=== PATIENT | male | born 1995 | race Caucasian/White ===

== ENCOUNTER 2021-02-04 11:22 | Emergency (ER) | payer OTHER ==
[~2021-02-04] VITALS: Ht 190.5 cm; Wt 90.7 kg
--- NOTE | 2021-02-04 11:42 | NUR ---
URINE COLLECTED AND SENT TO LAB
--- NOTE | 2021-02-04 11:43 | NUR ---
TO ER BED 3, C/O DYSURIA X 2 WEEKS WITH LEFT FLANK PAIN, MD JEANA AT BEDSIDE FOR EVAL
--- NOTE | 2021-02-04 11:49 | NUR ---
US AT BEDSIDE
--- NOTE | 2021-02-04 11:55 | NUR ---
SALINE LOCK ESTABLISHED, BLOOD DRAWN AND PICKED UP BY LAB
[2021-02-04] MEDS ORDERED: KETOROLAC TROMETHAMINE INJ 30 MG/ML VIAL IM ONE (12:00)
[2021-02-04] MEDS ORDERED: IV NS 0.9% 1,000 ML IV ONE (12:00)
[2021-02-04] MEDS ORDERED: KETOROLAC TROMETHAMINE INJ 30 MG/ML VIAL ONE (12:00)
[2021-02-04 12:17] LABS: BASOPHILS % (AUTO) 0.3 % (0.0-2.0); EOSINOPHILS % (AUTO) 0.1 % (0.0-6.0); HEMATOCRIT 44 % (39-51); HEMOGLOBIN 14.8 g/dL (13.5-17.5); LYMPHOCYTES # (AUTO) 0.7 K/uL (0.8-4.8); LYMPHOCYTES % (AUTO) 10.2 % (20.0-44.0); MEAN CORPUSCULAR HGB CONC 33 g/dl (31.0-36.0); MEAN CORPUSCULAR VOLUME 92 fL (80-96); MONOCYTES # (AUTO) 0.5 K/uL (0.1-1.30); MONOCYTES % (AUTO) 6.3 % (2.0-12.0); NEUTROPHILS % (AUTO) 83.1 % (43.0-81.0); PLATELET COUNT (AUTO) 281 K/uL (150-450); RED BLOOD CELL COUNT(AUTO) 4.85 MIL/uL (4.5-6.0); WHITE BLOOD COUNT (AUTO) 7.2 K/uL (4.3-11.0)
[2021-02-04] MEDS ORDERED: IBUP-1957 PO (12:20)
[2021-02-04] MEDS ORDERED: TAMS-12 PO (12:20)
[2021-02-04 12:26] LABS: BILIRUBIN,URINE NEGATIVE (NEGATIVE); COLOR,URINE YELLOW (YELLOW); LEUKOCYTE ESTERASE ,URINE NEGATIVE (NEGATIVE); NITRITE, URINE NEGATIVE (NEGATIVE); PROTEIN,URINE NEGATIVE (NEGATIVE); UGLUCOSE NEGATIVE (NEGATIVE); UROBILINOGEN,URINE 0.2 EU/dL (0.2)
[2021-02-04] MEDS ORDERED: KETOROLAC TROMETHAMINE INJ 30 MG/ML VIAL IV ONE (12:30)
[2021-02-04 12:42] LABS: CALCIUM, SERUM 9.4 mg/dL (8.5-10.1); CREATININE 1.1 mg/dL (0.6-1.3); POTASSIUM 4.3 mmol/L (3.5-5.1)
[2021-02-04 13:15] VITALS: BP 118/69
--- NOTE | 2021-02-04 13:16 | NUR ---
IV removed. Catheter intact and site benign. Pressure and 4x4 applied to site. No bleeding noted.Patient discharged to home in stable condition. Written and verbal after care instructions given. Patient verbalizes understanding of instruction.
== END 2021-02-04 13:16 | disposition home or self-care (01) ==
LOC: ER 11:22
DX: N20.0 Calculus of kidney (principal); Z88.0 Allergy status to penicillin
CPT/HCPCS: 36415; 76770; 80048; 81003; 85025; 96361; 96374; 99284; J1885; J7030

== ENCOUNTER 2021-02-11 04:35 | Emergency (ER) | payer OTHER ==
[~2021-02-11] VITALS: Ht 190.5 cm; Wt 90.7 kg
[~2021-02-11 04:35] MED LIST: IBUP-1957 PO; TAMS-12 PO
[2021-02-11] MEDS ORDERED: ONDANSETRON HCL/PF 4 MG/2 ML VIAL ONE (04:54)
[2021-02-11] MEDS ORDERED: KETOROLAC TROMETHAMINE INJ 30 MG/ML VIAL ONE (04:54)
--- NOTE | 2021-02-11 04:55 | NUR ---
PT BIBS C/O 10/10 FLANK PAIN AND NAUSEA. PT STATES HE HAD BLACK URINE DURING THE MORNING AND LIGHT PINK URINE PRIOR TO COMING TO ER. PT IS A/0X4. PT ON ROOM AIR SHOWING NO S/S OF RESP DISTRESS/SOB. BREATHING EVEN AND UNLABORED. WILL CONTINUE TO MONITOR AND ASSESS FOR ANY CHANGES.
[2021-02-11] MEDS: IV NS 0.9% 1,000 ML BAG IV ONE (05:08)
[2021-02-11] MEDS: KETOROLAC TROMETHAMINE INJ 30 MG/ML VIAL IV ONE (05:10)
[2021-02-11] MEDS: ONDANSETRON HCL/PF 4 MG/2 ML VIAL IVP ONE (05:10)
[2021-02-11 05:14] LABS: BASOPHILS % (AUTO) 0.8 % (0.0-2.0); EOSINOPHILS % (AUTO) 2.1 % (0.0-6.0); HEMATOCRIT 43 % (39-51); HEMOGLOBIN 14.4 g/dL (13.5-17.5); LYMPHOCYTES % (AUTO) 42.1 % (20.0-44.0); MEAN CORPUSCULAR HGB CONC 34 g/dl (31.0-36.0); MEAN CORPUSCULAR VOLUME 92 fL (80-96); MONOCYTES # (AUTO) 0.5 K/uL (0.1-1.30); MONOCYTES % (AUTO) 10.7 % (2.0-12.0); NEUTROPHILS # (AUTO) 2.1 K/uL (1.8-8.9); NEUTROPHILS % (AUTO) 44.3 % (43.0-81.0); PLATELET COUNT (AUTO) 239 K/uL (150-450); RED BLOOD CELL COUNT(AUTO) 4.64 MIL/uL (4.5-6.0); WHITE BLOOD COUNT (AUTO) 4.8 K/uL (4.3-11.0)
[2021-02-11 05:16] LABS: CALCIUM, SERUM 9.4 mg/dL (8.5-10.1); CREATININE 1.1 mg/dL (0.6-1.3); POTASSIUM 4.6 mmol/L (3.5-5.1)
[2021-02-11 05:22] LABS: ALBUMIN 4.3 g/dL (3.4-5.0); BILIRUBIN,DIRECT 0.1 mg/dL (0.0-0.2); BILIRUBIN,TOTAL 0.3 mg/dL (0.2-1.0); TOTAL PROTEIN, SERUM 7.5 g/dL (6.4-8.2)
--- NOTE | 2021-02-11 05:35 | NUR ---
urine sent to lab
[2021-02-11 05:56] LABS: BILIRUBIN,URINE SMALL (NEGATIVE); COLOR,URINE OTHER (YELLOW); LEUKOCYTE ESTERASE ,URINE NEGATIVE (NEGATIVE); NITRITE, URINE NEGATIVE (NEGATIVE); PROTEIN,URINE 30 mg/dl (NEGATIVE); UGLUCOSE NEGATIVE (NEGATIVE); UROBILINOGEN,URINE 0.2 EU/dL (0.2)
[2021-02-11 06:02] LABS: RBC,URINE TOO NUMEROUS TO COUN /HPF (0-2)
[2021-02-11 06:03] LABS: BACTERIA,URINE Few /HPF (None Seen); SQUAMOUS EPITHELIAL CELL,UR Rare /HPF (None Seen)
[2021-02-11] MEDS ORDERED: HYDROMORPHONE 1 MG/1 ML DISP.SYRIN ONE (06:30)
[2021-02-11] MEDS: HYDROMORPHONE INJ 2 MG/ML DISP.SYRIN IV ONE (06:37)
[2021-02-11] MEDS ORDERED: HYDR-3972 PO (07:00)
[2021-02-11 07:17] VITALS: BP 124/72
== END 2021-02-11 07:13 | disposition home or self-care (01) ==
LOC: ER 04:37
DX: N20.0 Calculus of kidney (principal); F17.200 Nicotine dependence, unspecified, uncomplicated; Z88.0 Allergy status to penicillin; Z79.899 Other long term (current) drug therapy
CPT/HCPCS: 36415; 74176; 80048; 80076; 81001; 83690; 85025; 96361; 96374; 96375; 99284; J1170; J1885; J2405; J7030